=== PATIENT | male | born 1995 | race Caucasian/White ===

== ENCOUNTER 2018-03-19 19:53 | Emergency (ER) | payer OTHER ==
[~2018-03-19] VITALS: Ht 175.3 cm; Wt 66.7 kg
[2018-03-19] MEDS ORDERED: PENVK500 PO (20:07)
== END 2018-03-19 20:11 | disposition home or self-care (01) ==
LOC: ER 19:53
DX: J02.9 Acute pharyngitis, unspecified (principal)
CPT/HCPCS: 99283

== ENCOUNTER 2018-03-22 08:23 | Emergency (ER) | payer OTHER ==
[~2018-03-22] VITALS: Ht 175.3 cm; Wt 66.2 kg
[~2018-03-22 08:23] MED LIST: PENVK500 PO
[2018-03-22 09:19] LABS: BASOPHILS ABSOLUTE AUTO 0.02 K/mm3 (0.00-0.23); BASOPHILS PERCENT AUTO 0 % (0-2); EOSINOPHILS ABSOLUTE AUTO 0.07 K/mm3 (0.00-0.68); EOSINOPHILS PERCENT AUTO 1 % (0-6); Hematocrit 44.1 % (37.0-53.0); IMMATURE GRAN ABSOLUTE AUTO 0.03 K/mm3 (0.00-0.10); IMMATURE GRAN PERCENT AUTO 0 % (0-1); LYMPHOCYTES ABSOLUTE AUTO 2.19 K/mm3 (0.84-5.20); LYMPHOCYTES PERCENT AUTO 22 % (21-46); MONOCYTES PERCENT AUTO 8 % (4-13); Mean Corpuscular HGB 30.4 pg (26.0-34.0); Mean Corpuscular Volume 90 fL (80-100); NEUTROPHILS ABSOLUTE AUTO 7.03 K/mm3 (1.96-9.15); NEUTROPHILS PERCENT AUTO 69 % (41-73); Platelet Count 153 K/mm3 (150-400); RDW Standard Deviation 42.8 fL (35.1-46.3); Red Blood Cell Count 4.93 M/mm3 (4.30-5.90); White Blood Cell Count 10.14 K/mm3 (4.00-11.30)
[2018-03-22 09:39] LABS: Alanine Aminotransfer (ALT/SGP 17 U/L (12-78); Albumin, Blood 3.6 g/dL (3.4-5.0); Albumin/Globulin Ratio 0.9 (0.8-1.8); Alk Phos 77 U/L (50-136); Anion Gap 7 mmol/L (6-16); Aspartate Aminotrans (AST/SGOT 11 U/L (12-37); Bilirubin, Total 0.3 mg/dL (0.1-1.0); Blood Urea Nitrogen 9 mg/dL (8-24); CO2, Blood 26 mmol/L (21-32); Calcium, Blood 8.7 mg/dL (8.5-10.1); Chloride, Blood 109 mmol/L (98-108); Creatinine, Blood 0.69 mg/dL (0.60-1.20); Globulin, Blood 4.1 g/dL (2.2-4.0); Glomerular Filtration Rate >60 (60-); Glucose, Blood 87 mg/dL (70-99); Potassium, Blood 3.9 mmol/L (3.5-5.5); Sodium, Blood 142 mmol/L (136-145); Total Protein, Blood 7.7 g/dL (6.4-8.2)
[2018-03-22] MEDS ORDERED: Cleocin HCl300 MG PO (10:36)
[2018-03-23] MEDS ORDERED: ACET325 (16:24)
[2018-03-23] MEDS ORDERED: IBUP400 PO (16:24)
== END 2018-03-22 11:36 | disposition home or self-care (01) ==
LOC: ER 08:23
PROVIDERS: Physician Assistant
DX: L03.211 Cellulitis of face (principal); F17.210 Nicotine dependence, cigarettes, uncomplicated
CPT/HCPCS: 36415; 70487; 80053; 85025; 96365; 96375; 99284-25; J1100; J2405; Q9967

== ENCOUNTER 2018-03-22 19:30 | Emergency (ER) | payer OTHER ==
[~2018-03-22] VITALS: Ht 175.3 cm; Wt 89.4 kg
[~2018-03-22 19:30] MED LIST changes: +Cleocin HCl300 MG PO
[2018-03-23] MEDS ORDERED: IBUP400 PO (16:24)
[2018-03-23] MEDS ORDERED: ACET325 (16:24)
== END 2018-03-22 20:55 | disposition home or self-care (01) ==
LOC: ER 19:30
DX: L03.211 Cellulitis of face (principal); F17.210 Nicotine dependence, cigarettes, uncomplicated
CPT/HCPCS: 96365; 99281-25

== ENCOUNTER 2018-03-23 04:34 | Emergency (ER) | payer OTHER ==
[~2018-03-23] VITALS: Ht 180.3 cm; Wt 66.7 kg
[2018-03-23] MEDS ORDERED: ACET325 (16:24)
[2018-03-23] MEDS ORDERED: IBUP400 PO (16:24)
== END 2018-03-23 05:20 | disposition home or self-care (01) ==
LOC: ER 04:34
DX: L03.211 Cellulitis of face (principal); F17.210 Nicotine dependence, cigarettes, uncomplicated
CPT/HCPCS: 96365; 99281-25

== ENCOUNTER 2018-03-23 23:46 | Emergency (ER) | payer OTHER ==
[~2018-03-23] VITALS: Ht 175.3 cm; Wt 66.2 kg
[~2018-03-23 23:46] MED LIST changes: +ACET325; +IBUP400 PO
== END 2018-03-24 00:54 | disposition home or self-care (01) ==
LOC: ER 23:46
DX: L03.211 Cellulitis of face (principal); Z79.899 Other long term (current) drug therapy; F17.210 Nicotine dependence, cigarettes, uncomplicated
CPT/HCPCS: 96365; 99281-25

== ENCOUNTER 2018-03-24 07:28 | Day surgery (SDC) | payer OTHER | END 2018-03-24 16:00 | disposition home or self-care (01) | LOC: ATC 07:28 | DX: L03.211 Cellulitis of face (principal) | CPT/HCPCS: 96365 ==

== ENCOUNTER 2018-03-24 08:35 | Emergency (ER) | payer OTHER ==
[~2018-03-24] VITALS: Ht 175.3 cm; Wt 66.2 kg
[2018-03-24 10:42] LABS: BASOPHILS ABSOLUTE AUTO 0.04 K/mm3 (0.00-0.23); BASOPHILS PERCENT AUTO 0 % (0-2); EOSINOPHILS ABSOLUTE AUTO 0.04 K/mm3 (0.00-0.68); EOSINOPHILS PERCENT AUTO 0 % (0-6); Hematocrit 40.8 % (37.0-53.0); Hemoglobin 13.6 g/dL (13.5-17.5); IMMATURE GRAN ABSOLUTE AUTO 0.02 K/mm3 (0.00-0.10); IMMATURE GRAN PERCENT AUTO 0 % (0-1); LYMPHOCYTES ABSOLUTE AUTO 2.66 K/mm3 (0.84-5.20); LYMPHOCYTES PERCENT AUTO 26 % (21-46); MONOCYTES ABSOLUTE AUTO 0.85 K/mm3 (0.16-1.47); MONOCYTES PERCENT AUTO 8 % (4-13); Mean Corpuscular HGB 30.6 pg (26.0-34.0); Mean Corpuscular HGB Conc 33.3 g/dL (31.5-36.5); Mean Corpuscular Volume 92 fL (80-100); Mean Platelet Volume 9.6 fL (9.1-12.4); NEUTROPHILS ABSOLUTE AUTO 6.46 K/mm3 (1.96-9.15); NEUTROPHILS PERCENT AUTO 64 % (41-73); Platelet Count 188 K/mm3 (150-400); RDW Coefficient Variation 13.1 % (11.7-14.2); RDW Standard Deviation 44.2 fL (35.1-46.3); Red Blood Cell Count 4.45 M/mm3 (4.30-5.90); White Blood Cell Count 10.07 K/mm3 (4.00-11.30)
== END 2018-03-24 12:34 | disposition home or self-care (01) ==
LOC: ER 08:35
PROVIDERS: Physician Assistant
DX: L03.211 Cellulitis of face (principal); F17.210 Nicotine dependence, cigarettes, uncomplicated
CPT/HCPCS: 36415; 70487; 85025; 96374; 99284-25; J1100; J1885; Q9967

== ENCOUNTER → 2019-05-10 | Outpatient (CLI) | payer OTHER ==
[2019-05-10 13:02] LABS: BASOPHILS ABSOLUTE AUTO 0.05 K/mm3 (0.00-0.23); BASOPHILS PERCENT AUTO 1 % (0-2); EOSINOPHILS ABSOLUTE AUTO 0.02 K/mm3 (0.00-0.68); EOSINOPHILS PERCENT AUTO 0 % (0-6); Hematocrit 45.1 % (37.0-53.0); Hemoglobin 15.6 g/dL (13.5-17.5); IMMATURE GRAN ABSOLUTE AUTO 0.01 K/mm3 (0.00-0.10); IMMATURE GRAN PERCENT AUTO 0 % (0-1); LYMPHOCYTES ABSOLUTE AUTO 1.37 K/mm3 (0.84-5.20); LYMPHOCYTES PERCENT AUTO 30 % (21-46); MONOCYTES PERCENT AUTO 9 % (4-13); Mean Corpuscular HGB 31.3 pg (26.0-34.0); Mean Corpuscular HGB Conc 34.6 g/dL (31.5-36.5); Mean Corpuscular Volume 91 fL (80-100); Mean Platelet Volume 10.2 fL (9.1-12.4); NEUTROPHILS PERCENT AUTO 59 % (41-73); Platelet Count 229 K/mm3 (150-400); RDW Coefficient Variation 12.3 % (11.7-14.2); RDW Standard Deviation 40.3 fL (35.1-46.3); Red Blood Cell Count 4.98 M/mm3 (4.30-5.90); White Blood Cell Count 4.55 K/mm3 (4.00-11.30)
[2019-05-10 13:12] LABS: Alanine Aminotransfer (ALT/SGP 17 U/L (12-78); Albumin, Blood 4.5 g/dL (3.4-5.0); Albumin/Globulin Ratio 1.2 (0.8-1.8); Alk Phos 101 U/L (40-126); Anion Gap 8 mmol/L (6-16); Aspartate Aminotrans (AST/SGOT 15 U/L (12-37); Bilirubin, Total 0.4 mg/dL (0.1-1.0); Blood Urea Nitrogen 16 mg/dL (8-24); Bun/Creatinine Ratio 20.3 (12.0-20.0); CO2, Blood 30 mmol/L (21-32); Calcium, Blood 9.2 mg/dL (8.5-10.1); Chloride, Blood 104 mmol/L (98-108); Creatinine, Blood 0.79 mg/dL (0.60-1.20); Globulin, Blood 3.7 g/dL (2.2-4.0); Glomerular Filtration Rate >60 (60-); Glucose, Blood 88 mg/dL (70-99); Potassium, Blood 4.1 mmol/L (3.5-5.5); Sodium, Blood 142 mmol/L (136-145); Total Protein, Blood 8.2 g/dL (6.4-8.2)
== END | disposition home or self-care (01) ==
LOC: LAB EV 12:58 → LAB SHORT 12:58
PROVIDERS: Physician Assistant Medical
DX: R19.7 Diarrhea, unspecified (principal); R11.2 Nausea with vomiting, unspecified
CPT/HCPCS: 80053; 85025